=== PATIENT | male | born 1960 | race Caucasian/White ===

== ENCOUNTER → 2018-07-12 | Outpatient (CLI) | payer MEDICARE ==
[~2018-07-12] MED LIST: DIPHENHIST50 MG PO; GLUCOTROL5 MG PO; INVOKANA300 MG; JANUVIA100 MG PO; LISINOPRIL-HCT1 EACH PO; METFORMIN HCL500 MG PO; OXYCONTIN10 M1 PO; VERTICALM25 MG PO
== END ==
LOC: M.RAD 13:42
DX: C10.9 Malignant neoplasm of oropharynx, unspecified (principal); R07.9 Chest pain, unspecified

== ENCOUNTER 2018-12-15 11:37 | Emergency (ER) | payer OTHER ==
[~2018-12-15] VITALS: Ht 188 cm; Wt 102.5 kg
[2018-12-15] MEDS ORDERED: BACTRIM DS TAB1 EACH PO (12:13)
[2018-12-15 12:25] VITALS: BP 167/88
== END 2018-12-15 12:26 | disposition home or self-care (01) ==
LOC: M.ERS 11:37
DX: L03.031 Cellulitis of right toe (principal); E11.9 Type 2 diabetes mellitus without complications; I10 Essential (primary) hypertension; Z90.49 Acquired absence of other specified parts of digestive tract; Z88.8 Allergy status to other drugs, medicaments and biological substances

== ENCOUNTER → 2019-08-08 | Outpatient (CLI) | payer OTHER ==
[~2019-08-08] MED LIST changes: +BACTRIM DS TAB1 EACH PO
== END ==
LOC: M.RAD 13:15
DX: C02.9 Malignant neoplasm of tongue, unspecified (principal); M47.814 Spondylosis without myelopathy or radiculopathy, thoracic region; D71 Functional disorders of polymorphonuclear neutrophils

== ENCOUNTER 2020-08-03 18:22 | Emergency (ER) | payer MEDICARE ==
[~2020-08-03] VITALS: Ht 185.4 cm; Wt 147.4 kg
[2020-08-03] MEDS ORDERED: LISINOPRIL10 MG PO (18:30)
[2020-08-03] MEDS ORDERED: LYRICA 50 MG50 MG PO (18:31)
[2020-08-03 18:56] LABS: URINE BILIRUBIN NEGATIVE (Negative); URINE BLOOD NEGATIVE (Negative); URINE CLARITY CLEAR; URINE COLOR YELLOW; URINE GLUCOSE-RANDOM NEGATIVE (Negative); URINE KETONES TRACE (Negative); URINE LEUKOCYTES-REFLEX NEGATIVE (Negative); URINE NITRITE-REFLEX NEGATIVE (Negative); URINE PROTEIN TRACE (Negative); URINE SPECIFIC GRAVITY 1.025 (1.005-1.030); URINE UROBILINOGEN 0.2 E.U./dl (0.2-1.0)
[2020-08-03 19:01] LABS: ABSOLUTE LYMPHOCYTES 1.6 thou/uL (0.8-5.3); ABSOLUTE MONOCYTES 0.5 thou/uL (0.0-1.2); ABSOLUTE NEUTROPHILS 2.4 thou/uL (1.6-8.1); BASOPHILS 0.7 %; EOSINOPHILS 0.8 %; HEMATOCRIT 44.9 % (42.0-52.0); HEMOGLOBIN 15.3 gm/dL (14.0-18.0); LYMPHOCYTES 34.7 %; MCH 28.4 pg (26.0-34.0); MCV 83.4 fL (80.0-100.0); MONOCYTES 10.8 %; MPV 8.4 fl. (7.2-11.1); NUCLEATED RBCS 0 /100WBC; PLATELET COUNT* 229 thou/uL (150-400); RBC 5.39 mil/uL (4.50-6.00); RDW-CV 14.2 % (10.5-14.5); WBC 4.5 thou/uL (4.0-11.0)
[2020-08-03 19:10] LABS: CALCIUM 8.9 mg/dL (8.5-10.1); CREATININE 1.8 mg/dL (0.6-1.3); POTASSIUM 4.7 mmol/L (3.5-5.1)
[2020-08-03 19:13] LABS: INR 0.9; PROTIME 10.1 Seconds (9.20-11.50)
[2020-08-03 19:21] LABS: ALBUMIN 3.6 g/dL (3.4-5.0); TOTAL BILIRUBIN 0.2 mg/dL (<0.1-1.0); TOTAL PROTEIN 7.5 g/dL (6.4-8.2)
[2020-08-03] MEDS ORDERED: ZPAK PO ×2 (19:29→19:32)
[2020-08-03 19:44] VITALS: BP 142/75
--- NOTE | 2020-08-04 13:14 | EKG ---
[place] [address] ELECTROCARDIOGRAM REPORT Name: DENIS LYMAN Room: [facility] ([place], [place])#: [id number] Admission: 08/03/20 Attend Phys: Discharge: 08/03/20 Date of : 62 Date of Service: 08/03/20 184 Report #: [id number] THIS REPORT FOR: //name// [facility] ED Test Date: 2020-08-03 Test Time: 18:41:39 Pat Name: DENIS LYMAN Department: Room: Gender: Senior Warehouse Clerk: : 1960 Requested By: Woodrow Hay Order Number: [id number] MD: Sylvester Kellogg Measurements Intervals [place] Rate: 79 P: 2 IA: 158 QRS: -93 QRSD: 159 T: 31 QT: 427 QTc: 490 Interpretive Statements Sinus rhythm RBBB and LAFB Baseline wander in lead(s) V6 Compared to ECG 07/12/2017 20:59:39 Left anterior fascicular block now present Right bundle-branch block now present Left-axis deviation no longer present Electronically Signed On 08-04-2020 13:13:56 METAL TEMPERER by Sylvester Kellogg [email or web address] <ELECTRONICALLY SIGNED> By: Sylvester Kellogg MD, FACC 08/04/20 1313 40 40 Sylvester Kellogg MD, FACC /EPI
== END 2020-08-03 19:44 | disposition home or self-care (01) ==
LOC: M.ERS 18:22
PROVIDERS: Family Medicine
DX: U07.1 COVID-19 (principal); E11.9 Type 2 diabetes mellitus without complications; I10 Essential (primary) hypertension; R79.89 Other specified abnormal findings of blood chemistry; Z88.8 Allergy status to other drugs, medicaments and biological substances; Z85.810 Personal history of malignant neoplasm of tongue; Z90.49 Acquired absence of other specified parts of digestive tract

== ENCOUNTER 2021-07-02 14:48 | Emergency (ER) | payer OTHER ==
[~2021-07-02] VITALS: Ht 185.4 cm; Wt 154.2 kg
[~2021-07-02 14:48] MED LIST changes: +LISINOPRIL10 MG PO; +LYRICA 50 MG50 MG PO; +ZPAK PO
[2021-07-02] MEDS ORDERED: COZAAR 25 MG TA25 M1 PO (15:21)
[2021-07-02] MEDS ORDERED: TRULICITY0.75 MG/0. SUBQ (15:22)
[2021-07-02 16:02] LABS: HEMATOCRIT 42.9 % (42.0-52.0); HEMOGLOBIN 14.4 gm/dL (14.0-18.0); MCH 28.6 pg (26.0-34.0); MCHC 33.6 g/dL (28.0-37.0); MPV 8.4 fl. (7.2-11.1); NUCLEATED RBCS 0 /100WBC; PLATELET COUNT* 311 thou/uL (150-400); RBC 5.05 mil/uL (4.50-6.00); RDW-CV 14.2 % (10.5-14.5); WBC 9.4 thou/uL (4.0-11.0)
[2021-07-02 16:06] LABS: ABSOLUTE LYMPHOCYTES 1.6 thou/uL (0.8-5.3); ABSOLUTE MONOCYTES 0.6 thou/uL (0.0-1.2); ABSOLUTE NEUTROPHILS 6.9 thou/uL (1.6-8.1); LYMPHOCYTES 17.3 %; MONOCYTES 6.6 %; POLYS 73.2 %
[2021-07-02 16:07] LABS: ABSOLUTE BASOPHILS 0.1 thou/uL (0.0-0.2); ABSOLUTE EOSINOPHILS 0.2 thou/uL (0.0-0.7); BASOPHILS 1.3 %; CREATININE 1.5 mg/dL (0.6-1.3); EOSINOPHILS 1.6 %; POTASSIUM 5.5 mmol/L (3.5-5.1)
[2021-07-02 16:10] LABS: URINE BILIRUBIN NEGATIVE (Negative); URINE BLOOD NEGATIVE (Negative); URINE CLARITY CLEAR; URINE COLOR YELLOW; URINE GLUCOSE-RANDOM TRACE (Negative); URINE KETONES NEGATIVE (Negative); URINE LEUKOCYTES-REFLEX NEGATIVE (Negative); URINE NITRITE-REFLEX NEGATIVE (Negative); URINE PROTEIN NEGATIVE (Negative); URINE SPECIFIC GRAVITY 1.025 (1.005-1.030); URINE UROBILINOGEN 0.2 E.U./dl (0.2-1.0)
[2021-07-02 16:15] LABS: ALBUMIN 3.7 g/dL (3.4-5.0); TOTAL BILIRUBIN 0.3 mg/dL (<0.1-1.0); TOTAL PROTEIN 7.8 g/dL (6.4-8.2)
[2021-07-02 17:16] VITALS: BP 124/74
--- NOTE | 2021-07-03 16:38 | EKG ---
[place] [address] ELECTROCARDIOGRAM REPORT Name: NURADENIS Mireya Room: [facility]#: [id number] Admission: 07/02/21 Attend Phys: Discharge: 07/02/21 Date of : 62 Date of Service: 07/02/21 1604 Report #: [id number] THIS REPORT FOR: //name// [facility] ED Test Date: 2021-07-02 Test Time: 16:04:03 Pat Name: DENIS LYMAN Department: Room: Gender: Magistrate Assistant: : 1960 Requested By: Jesse Elizabeth Order Number: [id number] MD: Kole Kaiser Measurements Intervals [place] Rate: 80 P: -31 AL: 181 QRS: -100 QRSD: 154 T: 8 QT: 415 QTc: 479 Interpretive Statements Sinus rhythm RBBB and LAFB Compared to ECG 08/03/2020 18:41:39 No significant changes Electronically Signed On 07-03-2021 16:38:02 HORTICULTURE INSTRUCTOR by Kole Kaiser [email or web address] <ELECTRONICALLY SIGNED> By: Kole Kaiser MD, [facility] 07/03/21 1638 1604 1604 Kole Kaiser MD, [facility] /EPI
== END 2021-07-02 17:17 | disposition home or self-care (01) ==
LOC: M.ERS 14:48
PROVIDERS: Physician Assistant
DX: I10 Essential (primary) hypertension (principal); E11.9 Type 2 diabetes mellitus without complications; Z90.49 Acquired absence of other specified parts of digestive tract; Z79.899 Other long term (current) drug therapy; Z88.8 Allergy status to other drugs, medicaments and biological substances

== ENCOUNTER → 2021-08-04 | Outpatient (CLI) | payer OTHER ==
[~2021-08-04] MED LIST changes: +COZAAR 25 MG TA25 M1 PO; +TRULICITY0.75 MG/0. SUBQ
== END ==
LOC: M.ULTRA 10:41
PROVIDERS: ATTEND Internal Medicine Cardiovascular Disease
DX: I65.23 Occlusion and stenosis of bilateral carotid arteries (principal); R09.89 Other specified symptoms and signs involving the circulatory and respiratory systems

== ENCOUNTER → 2021-08-27 | Outpatient (CLI) | payer OTHER ==
[2021-08-27 16:02] LABS: CALCIUM 9.2 mg/dL (8.5-10.1); CREATININE 1.8 mg/dL (0.6-1.3); POTASSIUM 5.3 mmol/L (3.5-5.1)
== END ==
LOC: M.LAB 14:55
PROVIDERS: ATTEND Nurse Practitioner
DX: E03.9 Hypothyroidism, unspecified (principal); E78.5 Hyperlipidemia, unspecified